=== PATIENT | male | born 1950 | race Caucasian/White ===

== ENCOUNTER → 2016-11-18 | Outpatient (CLI) | payer OTHER ==
--- NOTE | 2016-11-18 12:25 | US ---
Limited Right Lower Extremity Duplex Doppler Ultrasound History: Prior greater saphenous vein harvesting with possible duplication on previous study. Evalua te for reflux and source of right calf varicosities. Comparison: Right lower extremity ultrasound March 01, 2008. Findings: A duplicated greater saphenous vein is not identified on the current study. There is no vis ible greater saphenous vein in the thigh. A small greater saphenous vein is visible at the level of t he knee and calf. 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 No venous thrombosis is identified. Impression: 1. No venous thrombosis identified. 2. Prior harvest of the greater saphenous vein with no identifiable duplicated segment in the thigh. 3. Calf varicosities with sources as above.
== END ==
LOC: BMCIMAGING 10:55
PROVIDERS: ATTEND Surgery
DX: I83.891 Varicose veins of right lower extremity with other complications (principal)